=== PATIENT | female | born 1995 | race Caucasian/White ===

== ENCOUNTER 2017-10-31 23:04 | Emergency (ER) | payer SELFPAY ==
[~2017-10-31] VITALS: Ht 157.5 cm; Wt 71.0 kg
[2017-10-31 23:06] VITALS: BP 132/75; PULSE 95; RESP 16; TEMP 98.4; O2SAT 100
[2017-10-31 23:32] VITALS: BP 116/68; PULSE 87; RESP 20; TEMP 98.7; O2SAT 100
[2017-10-31] MEDS ORDERED: VITA250C3 CHEW (23:37)
[2017-10-31 23:41] VITALS: BP_SYST 107; BP_SYST 116; BP_SYST 138; BP_DIAS 68; BP_DIAS 74; BP_DIAS 78; RESP 16; RESP 18
[2017-10-31 23:57] LABS: AUTOMATED NEUTROPHIL # 7.3 TH/MM3 (1.8-7.7); BASOPHIL % 0.3 % (0.0-2.0); EOSINOPHIL # 0.2 TH/MM3 (0-0.4); EOSINOPHIL % 1.8 % (0.0-4.0); HEMOGLOBIN 13.8 GM/DL (11.6-15.3); LYMPH % 29.4 % (9.0-44.0); LYMPHOCYTE # 3.4 TH/MM3 (1.0-4.8); MEAN CELL VOLUME 89.7 FL (80.0-100.0); MEAN CORPUSCULAR HEMOGLOBIN 31.8 PG (27.0-34.0); MEAN CORPUSCULAR HGB CONC 35.4 % (32.0-36.0); MONO % 6.3 % (0.0-8.0); MONOCYTE # 0.7 TH/MM3 (0-0.9); NEUT % 62.2 % (16.0-70.0); PLATELET COUNT 373 TH/MM3 (150-450); RED BLOOD COUNT 4.35 MIL/MM3 (4.00-5.30); WHITE BLOOD COUNT 11.7 TH/MM3 (4.0-11.0)
--- NOTE | 2017-11-01 00:06 | PD ---
HPI Chief Complaint: Abdominal Pain Time Seen by Provider: 23:22 Travel History International Travel<30 days: No Contact w/Intl Traveler<30days: No History of Present Illness HPI Patient is a 22-year-old female who's had 4 days of excessive diarrhea and today she's had episodes of brownish maroon-like drops of blood coming out of her rectum. She's had a history of hemorrhoids in the past however she says that pain and blood is usually bright red blood patient is now in the ER nontoxic-appearing she is not pale she is not tachycardic she is not hypotensive. She took nothing for bleeding and nothing seems to alleviate it. Precipitated by excessive diarrhea, Has not seen another MD for this illness. Pt denies coagulopathy history nor FAM Hx of coagulopathy PFSH Past Medical History Medical History: Denies Significant Hx Tetanus Vaccination: < 5 Years Influenza Vaccination: No ?: Unknown LMP: unknown : 3 Para: 3 Miscarriage: 0 : 0 Past Surgical History Section: Yes Social History Alcohol Use: No Tobacco Use: Yes (1 PPD) Substance Use: No Allergies-Medications (Allergen,Severity, Reaction): Coded Allergies: Penicillins (Verified Allergy, Severe, Hives, 10/31/17) Reported Meds & Prescriptions Reported Meds & Active Scripts Active Reported Vitamin C (Ascorbic Acid) 250 Mg Chew 1,000 Mg CHEW DAILY Review of Systems Except as stated in HPI: all other systems reviewed are Neg Gastrointestinal: Positive: Diarrhea, Abdominal Pain, Hematochezia Physical Exam Narrative GENERAL: Patient is not pale not diaphoretic does not appear to be anemic SKIN: Warm and dry. HEAD: Atraumatic. Normocephalic. EYES: Pupils equal and round. No scleral icterus. No injection or drainage. ENT: No nasal bleeding or discharge. Mucous membranes pink and moist. NECK: Trachea midline. No JVD. CARDIOVASCULAR: Regular rate and rhythm. RESPIRATORY: No accessory muscle use. Clear to auscultation. Breath sounds equal bilaterally. GASTROINTESTINAL: Abdomen soft, mild epigastric and mild suprapubic tenderness- tender, nondistended. Hepatic and splenic margins not palpable. Rectal exam there are external hemorrhoids but there is no thrombosed hemorrhoids and trace guaiac positive no stool or blood gross on the glove MUSCULOSKELETAL: Extremities without clubbing, cyanosis, or edema. No obvious deformities. NEUROLOGICAL: Awake and alert. No obvious cranial nerve deficits. Motor grossly within normal limits. Five out of 5 muscle strength in the arms and legs. Normal speech. PSYCHIATRIC: Appropriate mood and affect; insight and judgment normal. Data Data Last Documented VS Vital Signs Date Time Temp Pulse Resp B/P (MAP) Pulse Ox O2 Delivery O2 Flow Rate FiO2 11/01/17 02:39 11/01/17 01:47 79 16 100 Room Air 10/31/17 23:32 98.7 Orders Orders Complete Blood Count With Diff (10/31/17 23:38) Comprehensive Metabolic Panel (10/31/17 23:38) Prothrombin Time / Inr (Pt) (10/31/17 23:38) Act Partial Throm Time (Ptt) (10/31/17 23:38) Ecg Monitoring (10/31/17 23:38) Orthostatic Vital Signs (10/31/17 23:38) Oximetry (10/31/17 23:38) Oxygen Administration (10/31/17 23:38) Iv Access Insert/Monitor (10/31/17 23:38) Type And Screen (10/31/17 23:38) Urinalysis - C+S If Indicated (10/31/17 23:45) Ed Urine Pregnancytest Poc (10/31/17 23:45) Ondansetron Inj (Zofran Inj) (11/01/17 00:16) Ondansetron Inj (Zofran Inj) (11/01/17 00:45) Sodium Chlor 0.9% 1000 Ml Inj (Ns 1000 M (11/01/17 00:45) Ed Discharge Order (11/01/17 02:08) Labs Laboratory Tests Test 10/31/17 23:45 White Blood Count 11.7 TH/MM3 Red Blood Count 4.35 MIL/MM3 Hemoglobin 13.8 GM/DL Hematocrit 39.0 % Mean Corpuscular Volume 89.7 FL Mean Corpuscular Hemoglobin 31.8 PG Mean Corpuscular Hemoglobin Concent 35.4 % Red Cell Distribution Width 13.0 % Platelet Count 373 TH/MM3 Mean Platelet Volume 8.0 FL Neutrophils (%) (Auto) 62.2 % Lymphocytes (%) (Auto) 29.4 % Monocytes (%) (Auto) 6.3 % Eosinophils (%) (Auto) 1.8 % Basophils (%) (Auto) 0.3 % Neutrophils # (Auto) 7.3 TH/MM3 Lymphocytes # (Auto) 3.4 TH/MM3 Monocytes # (Auto) 0.7 TH/MM3 Eosinophils # (Auto) 0.2 TH/MM3 Basophils # (Auto) 0.0 TH/MM3 CBC Comment DIFF FINAL Differential Comment Prothrombin Time 10.1 SEC Prothromb Time International Ratio 1.0 RATIO Activated Partial Thromboplast Time 25.3 SEC Urine Color YELLOW Urine Turbidity HAZY Urine pH 7.0 Urine Specific [place] 1.025 Urine Protein NEG mg/dL Urine Glucose (UA) NEG mg/dL Urine Ketones NEG mg/dL Urine Occult Blood SMALL Urine Nitrite NEG Urine Bilirubin NEG Urine Urobilinogen LESS THAN 2.0 MG/DL Urine Leukocyte Esterase NEG Urine RBC 1 /hpf Urine WBC 1 /hpf Urine Squamous Epithelial Cells 11 /hpf Urine Bacteria RARE /hpf Microscopic Urinalysis Comment CULT NOT INDICATED Blood Urea Nitrogen 16 MG/DL Creatinine 0.90 MG/DL Random Glucose 97 MG/DL Total Protein 7.4 GM/DL Albumin 4.0 GM/DL Calcium Level 8.8 MG/DL Alkaline Phosphatase 65 U/L Aspartate Amino Transf (AST/SGOT) 17 U/L Alanine Aminotransferase (ALT/SGPT) 23 U/L Total Bilirubin 0.2 MG/DL Sodium Level 141 MEQ/L Potassium Level 3.6 MEQ/L Chloride Level 106 MEQ/L Carbon Dioxide Level 26.9 MEQ/L Anion Gap 8 MEQ/L Estimat Glomerular Filtration Rate 77 ML/MIN MDM Medical Decision Making Medical Screen Exam Complete: Yes Emergency Medical Condition: Yes Differential Diagnosis Differential includes internal hemorrhoids versus external hemorrhoids versus AV malformation of the: Narrative Course Patient's orthostatics are normal there is no change in her heart rate and her drop in her blood pressure on standing is given a liter of fluid and Zofran for nausea. Her H&H is completely within normal limits there is no signs of anemia or vascular anemia secondary to the mild rectal bleed. In the ER there's been no excessive bleeding and she shows me a picture of a small dot of maroon colored blood on toilet paper nothing significant. Discharged follow- up as an outpatient will give a Dr Kee A statistical clerk advertising for possible anoscopy or sigmoidoscopy if necessary Diagnosis Primary Impression: Rectal bleeding Patient Instructions: General Instructions, Hemorrhoids (ED), Rectal Bleeding ( ED) Disposition: DISCHARGE HOME Condition: Good Froilan Gonzalez MD Nov 01, 2017 00:06
[2017-11-01 00:07] LABS: BACTERIA, URINE RARE /hpf; BILIRUBIN, URINE NEG (NEG); BLOOD, URINE SMALL (NEG); GLUCOSE,URINE NEG (NEG); KETONE, URINE NEG (NEG); NITRITE,URINE NEG (NEG); SQUAMOUS EPITHELIAL CELL URINE 11 /hpf (0-5); URINE COLOR YELLOW (YELLW/STRAW); URINE LEUKOCYTE ESTERASE NEG (NEG)
[2017-11-01 00:08] LABS: PROTHROMBIN TIME - PATIENT 10.1 SEC (9.8-11.6)
[2017-11-01] MEDS ORDERED: ONDANSETRON HCL 4 MG/2 ML VIAL ONE (00:16)
[2017-11-01 00:26] LABS: ALT (GPT) 23 U/L (10-53); AST (GOT) 17 U/L (15-37); BICARBONATE 26.9 MEQ/L (21.0-32.0); BLOOD UREA NITROGEN 16 MG/DL (7-18); CALCIUM 8.8 MG/DL (8.5-10.1); CHLORIDE 106 MEQ/L (98-107); GLOMERULAR FILTRATION RATE 77 ML/MIN (>89); GLUCOSE,RANDOM 97 MG/DL (74-106); SODIUM (NA) 141 MEQ/L (136-145)
[2017-11-01 00:28] LABS: ALKALINE PHOSPHATASE 65 U/L (45-117); TOTAL BILIRUBIN ADULT 0.2 MG/DL (0.2-1.0); TOTAL PROTEIN 7.4 GM/DL (6.4-8.2)
[2017-11-01] MEDS ORDERED: ONDANSETRON HCL 4 MG/2 ML VIAL IV PUSH ONE (00:45)
[2017-11-01] MEDS ORDERED: SODIUM CHLOR 0.9% 1000 ML INJ 1,000 ML IV ONE (00:45)
[2017-11-01 01:47] VITALS: BP 105/59; PULSE 79; RESP 16; O2SAT 100
== END 2017-11-01 02:38 | disposition home or self-care (01) ==
LOC: NEPC 23:04
DX: K62.5 Hemorrhage of anus and rectum (principal); R19.7 Diarrhea, unspecified; F17.200 Nicotine dependence, unspecified, uncomplicated
CPT/HCPCS: 80053; 81001; 84703; 85025; 85610; 85730; 86850; 86900; 86901; 96374; 99284; J2405; J7030